=== PATIENT | female | born 1990 | race Caucasian/White ===

== ENCOUNTER 2020-08-28 10:10 | Outpatient (REF) | payer OTHER, SELFPAY ==
[2020-08-28 10:41] LABS: COVID-19 Test Negative (Negative)
== END 2020-08-28 10:11 | disposition home or self-care (01) ==
LOC: HO.LAB 10:10
PROVIDERS: PCP Nurse Practitioner Family; Visit Provider Internal Medicine
DX: Z20.828 Contact with and (suspected) exposure to other viral communicable diseases (principal)
CPT/HCPCS: 87635

== ENCOUNTER 2022-12-30 06:11 | Outpatient (REF) | payer OTHER, SELFPAY ==
[2022-12-30 08:16] LABS: Basophils Absolute Auto 0.1 X10*3/uL (0.0-0.2); Eosinophils Absolute Auto 0.2 X10*3/uL (0.0-0.4); Eosinophils Percent Auto 2.2 % (0-4); Hematocrit 40.2 % (37.0-47.0); Hemoglobin 12.8 g/dl (12.0-16.0); Imm Gran Abs Auto 0.03 X10*3/uL (0.00-0.03); Imm Gran Pct Auto 0.4 % (0.0-0.4); Lymphocytes Absolute Auto 1.1 X10*3/uL (1.2-4.9); Lymphocytes Percent Auto 14.6 % (20-40); MANUAL DIFF FLAG NO; Mean Corpuscular HGB Conc 31.8 g/dl (31.0-35.0); Mean Corpuscular Volume 81.7 fL (80.0-98.0); Mean Platelet Volume 9.8 fL (9.4-12.3); Monocytes Absolute Auto 0.6 X10*3/uL (0.1-1.2); Monocytes Percent Auto 7.9 % (2-11); Neutrophils Absolute Auto 5.4 x10*3/uL (2.0-8.3); Neutrophils Percent Auto 73.9 % (45-73); Platelet Count 305 X10*3/uL (160-400); Red Blood Count 4.92 X10*6/uL (4.20-5.50); Red Cell Distribution Width 13.2 % (11.0-16.0); White Blood Count 7.2 X10*3/uL (4.8-10.8)
[2022-12-30 08:52] LABS: Alanine Aminotransferase 20 U/L (0-31); Albumin Level 4.2 g/dL (3.5-5.0); Alkaline Phosphatase 78 U/L (39-117); Anion Gap 13 (12-20); Aspartate Amino Transferase 17 U/L (5-31); Bilirubin Total 0.5 mg/dL (0.0-1.0); Blood Urea Nitrogen 11 mg/dL (9-16); C Reactive Protein 1.57 mg/dL (< or = 0.50); Calcium 9.1 mg/dL (8.4-10.2); Carbon Dioxide 23 mmol/L (22-29); Chloride 105 mmol/L (96-108); Cholesterol 176 mg/dL; Estimated Glomerular Filt Rate > 60; Gamma Glutamyl Transpeptidase 21 U/L (7-33); Glucose Random 98 mg/dL (60-115); HDL Cholesterol 59 mg/dL; LDL Cholesterol Calculated 105 mg/dl; Potassium 4.3 mmol/L (3.3-5.1); Sodium 137 mmol/L (135-145); Total Protein 7.2 g/dL (6.5-8.0); Triglycerides 62 mg/dL
[2022-12-30 09:07] LABS: Free T4 (Free Thyroxine) 0.89 ng/dL (0.71-1.85); Insulin 22 uU/mL (2-29); Thyroid Stimulating Hormone 1.22 uIU/mL (0.32-4.0); Vitamin D 25-OH Total 13.1 ng/mL (>30)
[2022-12-31 17:43] LABS: Calcium (PTHI) 9.4 mg/dL (8.6-10.2); PTHI 46 pg/mL (16-77)
[2023-01-01 07:54] LABS: Triiodothyronine T3 Free 3.6 pg/mL (2.3-4.2)
[2023-01-01 07:58] LABS: DHEA Sulfate 205 mcg/dL (19-237); Follicle Stimulating Hormone 8.5 mIU/mL; Lutenizing Hormone 10.4 mIU/mL
[2023-01-01 20:24] LABS: Homocysteine 6.2 umol/L (<10.4)
[2023-01-01 21:44] LABS: Thyroglobulin Antibodies <1 IU/mL (< or = 1); Thyroid Peroxidase Antibodies 4 IU/mL (<9)
[2023-01-04 16:04] LABS: Triiodothyronine T3 Reverse 13 ng/dL (8-25)
[2023-01-06 02:18] LABS: Dihydrotestosterone 10 ng/dL (< OR = 20)
[2023-01-06 17:18] LABS: Progesterone 0.1 ng/mL
[2023-01-08 19:09] LABS: Testosterone, Free 15.6 pg/mL (0.1-6.4); Testosterone, Total 103 ng/dL (2-45)
[2023-01-09 22:49] LABS: Estradiol, Ultrasensitive 65 pg/mL
== END 2022-12-30 06:12 | disposition home or self-care (01) ==
LOC: HO.HMGCLDS 06:11
PROVIDERS: PCP Nurse Practitioner Family; Visit Provider Internal Medicine
DX: E03.9 Hypothyroidism, unspecified (principal); F32.81 Premenstrual dysphoric disorder; E11.9 Type 2 diabetes mellitus without complications; E55.9 Vitamin D deficiency, unspecified; D64.9 Anemia, unspecified; E28.2 Polycystic ovarian syndrome; E78.5 Hyperlipidemia, unspecified; K76.0 Fatty (change of) liver, not elsewhere classified; R53.83 Other fatigue
CPT/HCPCS: 36415; 80053; 80061; 82306; 82627; 82642; 82670; 82681; 82977; 83001; 83002; 83090; 83525; 83970; 84144; 84402; 84403; 84439; 84443; 84481; 84482; 85025; 86140; 86376; 86800

== ENCOUNTER 2024-01-28 08:02 | Outpatient (AMB) | payer OTHER, SELFPAY ==
--- NOTE | 2024-01-28 08:16 | AM.OFFWIN_ITS ---
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 Pt believes she might be - her periods her late for 1 week. Pt declined test today (she is not emotionally ready to handle the News now). Denies fevers, chills, nausea or vomiting. Review of Systems Const All systems reviewed & are unremarkable except as noted in HPI and below Physical Exam Vital Signs: Last Vital Signs Temp 99.1 F 01/28/24 08:17 Pulse 76 01/28/24 08:17 BP 130/78 01/28/24 08:17 Pulse Ox 98 01/28/24 08:17 Oxygen Delivery Method Room Air 01/28/24 08:17 Const General: comfortable and no acute distress Nutritional Appearance: overweight Orientation/consciousness: patient oriented x3 HEENT Head: Yes normocephalic Ears: external ears normal and TM's normal bilaterally General nose exam: Normal nasal mucous membranes and turbinates present and No nasal discharge present Face and sinus: Yes sinuses nontender Mouth: Abnormal oral and palatal mucosa present erythematous and white patches Throat: Yes postnasal drainage Resp Effort & Inspection: normal respiratory effort and able to speak in complete sentences Auscultation: clear to auscultation bilaterally, no crackles, no rales, no rhonchi and no wheezes Cardio Rate: regular rate Rhythm: regular rhythm Neuro General: patient oriented x3 Results AMB Rapid Strep AMB Rapid Strep Positive Last Edit by Shannan Gil CMA on 01/28/24 08 :37 Results Reviewed Results Reviewed: Laboratory Last Values Strep Scn [facility] Positive 01/28/24 08:36 Assessment & Plan Assessment & Plan (1) Acute pharyngitis: Code(s): J02.9 - Acute pharyngitis, unspecified Qualifiers: Pharyngitis/tonsillitis etiology: unspecified etiology Qualified Code(s): J02.9 - Acute pharyngitis, unspecified Plan: - Amoxicillin antibiotics are generally considered compatible for use during . - Advised Pt to take Home test - Warm fluids with honey - Rest - Acetaminophen for pain relief. Orders: Orders AMB Rapid Strep Screen Today Z13.9 - Encounter for screening, unspecified Medications: New amoxicillin 500 mg PO BID 10 days 20 caps 0RF J02.9 - Acute pharyngitis, unspecified Coding Level of Care Code New Pt Level 3 (34439) Diagnoses Acute pharyngitis, unspecified etiology J02.9 Pharyngitis/tonsillitis etiology: unspecified etiology Time Spent (min) 15
[2024-01-28 08:17] VITALS: BP 130/78; PULSE 76; TEMP 37.3; O2SAT 98
== END 2024-01-28 09:14 | disposition home or self-care (01) ==
PROVIDERS: PCP Nurse Practitioner Family; Visit Provider Nurse Practitioner Family
DX: J02.9 Acute pharyngitis, unspecified (principal)
CPT/HCPCS: 87880; 99203